=== PATIENT | male | born 1990 | race Two or more races ===

== ENCOUNTER 2021-01-21 07:25 | Emergency (ER) | payer SELFPAY ==
[~2021-01-21] VITALS: Ht 172.7 cm; Wt 74.8 kg
[2021-01-21 07:28] VITALS: BP 110/70
[2021-01-21] MEDS ORDERED: IBUP-1953 PO (07:35)
[2021-01-21] MEDS ORDERED: IBUPROFEN 600 MG TABLET ONE (07:38)
[2021-01-21] MEDS ORDERED: IBUPROFEN 600 MG TABLET PO ONE (08:00)
== END 2021-01-21 07:46 | disposition home or self-care (01) ==
LOC: ER 07:29
DX: S43.492A Other sprain of left shoulder joint, initial encounter (principal); Z59.0 Homelessness; Z88.8 Allergy status to other drugs, medicaments and biological substances; X58.XXXA Exposure to other specified factors, initial encounter; Y93.89 Activity, other specified; Y92.89 Other specified places as the place of occurrence of the external cause; Y99.8 Other external cause status